=== PATIENT | female | born 1950 | race Two or more races ===

== ENCOUNTER → 2019-04-13 | Outpatient (CLI) | payer MEDICARE | LOC: MSC 11:30 | PROVIDERS: ATTEND Anesthesiology | DX: G89.4 Chronic pain syndrome (principal); M54.5 Low back pain; M62.830 Muscle spasm of back; M96.1 Postlaminectomy syndrome, not elsewhere classified; M79.2 Neuralgia and neuritis, unspecified; Z79.891 Long term (current) use of opiate analgesic; Z79.899 Other long term (current) drug therapy; Z99.3 Dependence on wheelchair ==